=== PATIENT | male | born 1955 | race Caucasian/White ===

== ENCOUNTER 2019-08-15 07:17 | Outpatient (CLI) | payer OTHER, SELFPAY ==
[2019-08-15 07:40] LABS: Hematocrit 49.7 % (42.0-52.0); Hemoglobin 16.4 g/dL (14.0-18.0); Mean Corpuscular Hemoglobin 28.3 pg (26-34); Mean Corpuscular Volume 85.8 fl (80-100); Mean Platelet Volume 9.7 fl (7.4-10.4); Platelet Count Result 262 k/mm3 (150-375); Red Blood Count 5.79 M/mm3 (4.6-6.20); Red Cell Distribution Width 13.4 % (11.5-14.5); White Blood Count 7.6 K/mm3 (4.5-10.0)
[2019-08-15 07:46] LABS: Alanine Aminotransferase 44 U/L (4-50); Albumin Level 4.7 g/dL (3.5-5.1); Alkaline Phosphatase 90 U/L (38-126); Aspartate Amino Transferase 39 U/L (17-59); Bilirubin,Total 0.5 mg/dL (0.2-1.3); Blood Urea Nitrogen 16 mg/dL (9-20); Calcium 9.2 mg/dL (8.4-10.2); Carbon Dioxide 28 mmol/L (22-30); Chloride 103 mmol/L (98-107); Cholesterol 221 mg/dL (0-200); Estimated Glomerular Filt Rate > 60; Glucose 103 mg/dL (75-110); HDL Direct 41 mg/dL; Potassium 4.4 mmol/L (3.4-5.0); Sodium 141 mmol/L (137-145); Triglycerides 113 mg/dL (<150)
[2019-08-15 08:01] LABS: LDL Cholesterol Direct 150 mg/dL
[2019-08-15 08:21] LABS: Prostate Specific Antigen 1.1 ng/mL (< OR = 4.0)
[2019-08-15 09:02] LABS: Folic Acid 5.5 ng/mL (2.76->20)
== END 2019-08-15 07:18 | disposition home or self-care (01) ==
PROVIDERS: PCP Physician Assistant; Visit Provider Physician Assistant
DX: Z00.00 Encounter for general adult medical examination without abnormal findings (principal); Z12.5 Encounter for screening for malignant neoplasm of prostate; I10 Essential (primary) hypertension
CPT/HCPCS: 36415; 80053; 80061; 82607; 82746; 84153; 84443; 85027; G0103

== ENCOUNTER 2019-10-24 02:33 | Outpatient (CLI) | payer OTHER, SELFPAY ==
[2019-10-24 18:57] LABS: SARS-CoV-2 RNA PCR Negative
== END 2019-10-24 02:34 | disposition home or self-care (01) ==
LOC: ANHCOVIDDT 02:34
PROVIDERS: PCP Physician Assistant; Visit Provider Internal Medicine Gastroenterology
DX: Z01.812 Encounter for preprocedural laboratory examination (principal); Z11.59 Encounter for screening for other viral diseases
CPT/HCPCS: 87635; C9803; U0003

== ENCOUNTER 2019-10-27 00:25 | Day surgery (SDC) | payer OTHER, SELFPAY ==
[2019-10-20 13:18] VITALS: BMI 32.3
[2019-10-27 11:31] VITALS: BP 146/78; PULSE 63; RESP 16; TEMP 36.8; O2SAT 99
--- NOTE | 2019-10-27 11:33 | PM.IMHP ---
H&P: HPI History of Present Illness Date/Time: 10/27/19 11:33 Chief complaint: Neoplasm Screening Narrative: Reason for visit colonoscopy. This very pleasant gentleman seen in consultation at the request of the primary physician. Impression: Screening colonoscopy. The patient has history of hyperplastic colon polyps. Recommendation: Colonoscopy. History: This very pleasant gentleman's here for screening colonoscopy. He has a history of hyperplastic colon polyps. His GI review systems is negative. Physical examination: General: very pleasant patient in no acute distress. HEENT: Head was normocephalic sclerae is clear mouth without masses neck was supple. Heart: Rate rhythm regular without S3 or S4. Lungs: CTA. Abdomen: Soft with no guarding or rigidity. Bowel sounds were active. Neurologic: Cranial nerves 2 through 12 intact. No focal defects. No clonus. Musculoskeletal system: Revealed no joint tenderness or swelling no muscle atrophy. Extremities: Reveal no significant edema. Skin: Warm and dry with normal turgor. Mental status: intact. Patient is alert and oriented. Review of Systems Review of Systems: All systems reviewed & are unremarkable except as noted in HPI and below PMFSH Past Medical History Medical History (Updated 10/27/19 @ 11:33 by Wyatt Nice DO) Colon polyp, hyperplastic HLD (hyperlipidemia) Rheumatic fever (~1965) Surgical History Surgical History (Updated 10/27/19 @ 11:33 by Wyatt Nice DO) History of colonoscopy Hx of hernia repair Social History Social History Smoking status: Never smoker Second hand tobacco smoke exposure: No Alcohol intake: current Drinks per week: 5 Substance use: never Meds Home Medications and Allergies Home Medications Medication Instructions Recorded Confirmed Type No Home Medications 10/20/19 10/27/19 History Allergies Allergy/AdvReac Type Severity Reaction Status Date / Time No Known Allergies Allergy Verified 10/27/19 11:29
[2019-10-27] MEDS: LACTATED RINGERS 1,000 ML 150 ML IV CONT (11:46)
--- NOTE | 2019-10-27 12:14 | WPDANESEPPF ---
Anes - Initial Pre Proc Eval Procedure: Operation Date: 10/27/19 12:00 Proposed Procedures p Screening Colonoscopy - Wyatt Nice DO Date/Time: 10/27/19 12:14 Surgeon: Wyatt Nice DO Pre Op Diagnosis: Neoplasm Screening Patient Data Age: 64 Gender: M Height: 5 ft 10 in Weight: 102.3 kg Last Vital Signs Temp 98.3 F 10/27/19 11:31 Pulse 63 10/27/19 11:31 Resp 16 10/27/19 11:31 BP 146/78 H 10/27/19 11:31 Pulse Ox 99 10/27/19 11:31 Allergies Allergy/AdvReac Type Severity Reaction Status Date / Time No Known Allergies Allergy Verified 10/27/19 11:29 Home Medications Medication Instructions Recorded Confirmed Type No Home Medications 10/20/19 10/27/19 History Patient hx anesthesia problems: none Family hx anesthesia problems: none PMFSH Past Medical History Medical History (Updated 10/27/19 @ 11:33 by Wyatt Nice DO) Colon polyp, hyperplastic HLD (hyperlipidemia) Rheumatic fever (~1965) Surgical History Surgical History (Updated 10/27/19 @ 11:33 by Wyatt Nice DO) History of colonoscopy Hx of hernia repair Social History Social History Smoking status: Never smoker Second hand tobacco smoke exposure: No Alcohol intake: current Drinks per week: 5 Substance use: never Anes - Eval Final PreProcedure Day of Procedure 10/27/19 12:14 Patient weight: overweight Heart: regular rate and rhythm Lungs: clear to auscultation Airway: Mallampati scale class II Neurological: alert and oriented Last oral intake: >/= 8 hours ASA classification: II Emergent: no Anesthetic plan: proceed Anesthesia type and monitoring: general GIVS Informed Consent: The patient's anesthetic plan and its attendant risks and benefits were discussed with the patient/family/POA. Questions were solicited and answers provided to the satisfaction of the patient/family/POA.
[2019-10-27 13:59] VITALS: BP 146/78; PULSE 75; RESP 14; O2SAT 100
[2019-10-27 14:09] VITALS: BP 123/89; PULSE 59; RESP 16; O2SAT 100
[2019-10-27 14:19] VITALS: BP 123/89; PULSE 59; RESP 18; O2SAT 100
== END 2019-10-27 14:44 | disposition home or self-care (01) ==
PROVIDERS: PCP Physician Assistant; Visit Provider Internal Medicine Gastroenterology
PROC: 0DJD8ZZ Inspection of Lower Intestinal Tract, Via Natural or Artificial Opening Endoscopic (ICD-10-PCS; CPT 45378; principal; 2019-10-27 12:00)
DX: Z12.11 Encounter for screening for malignant neoplasm of colon (principal); K63.5 Polyp of colon
CPT/HCPCS: 45380; 88305; J2704; J7120

== ENCOUNTER 2020-10-05 20:02 | Emergency (ER) | payer OTHER, SELFPAY ==
[2020-10-05 20:04] VITALS: BP 152/72; PULSE 78; RESP 18; TEMP 36.2; O2SAT 99
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
[2020-10-05] MEDS: TETANUS,DIPHTHERIA,AC PERTUSSIS ADULT (0.5 ML) BOOSTRIX IM (22:17)
[2020-10-05 22:35] VITALS: BP 126/72; PULSE 84; RESP 18; TEMP 36.8; O2SAT 99
== END 2020-10-05 22:35 | disposition home or self-care (01) ==
PROVIDERS: Emergency Provider Family Medicine
DX: S40.812A Abrasion of left upper arm, initial encounter (principal); S40.811A Abrasion of right upper arm, initial encounter; S80.211A Abrasion, right knee, initial encounter; Z23 Encounter for immunization; Z87.19 Personal history of other diseases of the digestive system; E78.5 Hyperlipidemia, unspecified; V18.4XXA Pedal cycle driver injured in noncollision transport accident in traffic accident, initial encounter; Y93.55 Activity, bike riding
CPT/HCPCS: 90471; 90715; 99283

== ENCOUNTER 2021-05-25 06:58 | Outpatient (CLI) | payer OTHER, SELFPAY ==
[2021-05-25 07:20] LABS: Hematocrit 45.8 % (42.0-52.0); Hemoglobin 15.3 g/dL (14.0-18.0); Mean Corpuscular HGB Conc 33.4 g/dl (32-36); Mean Corpuscular Hemoglobin 27.9 pg (26-34); Mean Corpuscular Volume 83.6 fl (80-100); Mean Platelet Volume 9.4 fl (7.4-10.4); Platelet Count Result 261 k/mm3 (150-375); Red Blood Count 5.48 M/mm3 (4.6-6.20); Red Cell Distribution Width 13.2 % (11.5-14.5); White Blood Count 7.6 K/mm3 (4.5-10.0)
[2021-05-25 07:39] LABS: Alanine Aminotransferase 33 U/L (4-50); Albumin Level 4.2 g/dL (3.5-5.1); Alkaline Phosphatase 83 U/L (38-126); Anion Gap 6 mmol/L (8-16); Aspartate Amino Transferase 41 U/L (17-59); Bilirubin,Total 0.5 mg/dL (0.2-1.3); Blood Urea Nitrogen 16 mg/dL (9-20); Calcium 8.6 mg/dL (8.4-10.2); Carbon Dioxide 27 mmol/L (22-30); Chloride 106 mmol/L (98-107); Cholesterol 215 mg/dL (0-200); Estimated Glomerular Filt Rate > 60; Glucose 94 mg/dL (65-110); HDL Direct 37 mg/dL; Sodium 139 mmol/L (137-145); Triglycerides 122 mg/dL (<150)
[2021-05-25 07:49] LABS: LDL Cholesterol Direct 132 mg/dL
[2021-05-25 11:55] LABS: Folic Acid 5.4 ng/mL (2.76->20)
== END 2021-05-25 06:59 | disposition home or self-care (01) ==
LOC: ANHLAB 07:00
PROVIDERS: PCP Physician Assistant; Visit Provider Physician Assistant
DX: Z00.00 Encounter for general adult medical examination without abnormal findings (principal); Z12.5 Encounter for screening for malignant neoplasm of prostate
CPT/HCPCS: 36415; 80053; 80061; 82607; 82746; 84153; 84443; 85027; G0103

== ENCOUNTER 2024-11-02 09:53 | Emergency (ER) | payer MEDICARE, SELFPAY ==
--- OUTSIDE RECORDS SUMMARY | 2024-11-02 09:58 | XMS_ITS | Encounter Summary ---
Author Organization [facility] Address [address] [place] [address] Care Team Providers Care Electric Accounting Machine Operator Name Role Phone Carlos Oleary MD Primary Care Provider [phone] Encounter Details Date Type Department Care Team (Late st Contact Info) Description 03/20/[address] 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
--- OUTSIDE RECORDS SUMMARY | 2024-11-02 09:58 | XMS_ITS | Encounter Summary ---
Author Organization [facility] Address [address] [place] [address] Care Team Providers Care Wafer Substrate Tester Name Role Phone Carlos Oleary MD Primary Care Provider [phone] Encounter Details Date Type Department Care Team (Late st Contact Info) Description 05/04/1998 Outpatient Historical [facility] Internal Medicine - [place] [address] [place] [address] [place] [address] [place] [facility] [place] [address] Social History Tobacco Use Types Packs/Day Years Used Date Smoking Tobacco: Never Assessed Sex and Gender Information Value Date Recorded Sex Assigned at Not on file 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
--- OUTSIDE RECORDS SUMMARY | 2024-11-02 09:58 | XMS_ITS | Clinical Summary ---
Author Organization [facility] Address [address] [facility] Attn: Epic Prelude ADT [place] [address] Care Team Providers Care Bilingual Middle School Teacher Name Role Phone Carlos Oleary MD Primary Care Provider [phone] Social History Tobacco Use Types Packs/Day Years Used Date Smoking Tobacco: Never Assessed Sex and Gender Information Value Date Recorded Sex Assigned at Not on file Legal Sex Male 5:00 AM CONSOLIDATOR Gender Identity Not on file Sexual Orientation Not on file Plan of Treatment Health Maintenance Due Date Last Done Comments DTAP/TDAP/TD VACCINES (1 - Tdap) 01/28/1975 COLORECTAL SCREENING 01/28/2001 Colorectal Cancer Screening 01/28/2001 FIT-DNA Q 3 years 01/28/2001 FIT/FOBT Q 1 year 01/28/2001 Flex Sig/CT Colonography Q 5 years 01/28/2001 PNEUMOCOCCAL VACCINE 50+ YEARS (1 of 1 - PCV) 01/29/20 06 ZOSTER VACCINE (1 of 2) 01/28/2006 INFLUENZA VACCINE (#1) 2024 RSV VACCINE (60+ or ) (1 - 1-dose 75+ series) 01/28/2031 Care Teams Bilingual Middle School Teacher Relationship Specialty [place] [address] [place] [address] PCP - General 07/24/07
--- OUTSIDE RECORDS SUMMARY | 2024-11-02 09:58 | XMS_ITS | Encounter Summary ---
Author Organization [employer] Address [address] [place] [address] Care Team Providers Care Underground Mine Superintendent Name Role Phone Carlos Oleary MD Primary Care Provider [phone] Encounter Details Date Type Department Care Team (Late st Contact Info) Description 03/28/2001 Emergency [facility] Dyllan Nowak, [address] [facility] [address] [place] [id number] Er, Authorized P NO ADDRESS ON FILE CHEST PAIN NOS (Primary Dx) Social History Tobacco Use Types Packs/Day Years Used Date Smoking Tobacco: Never Assessed Sex and Gender Information Value Date Recorded Sex Assigned at Not on file 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
--- OUTSIDE RECORDS SUMMARY | 2024-11-02 09:58 | XMS_ITS | Encounter Summary ---
Author Organization [facility] Address [address] [place] [address] Care Team Providers Care Manager Family Name Role Phone Carlos Oleary MD Primary Care Provider [phone] Encounter Details Date Type Department Care Team (Late st Contact Info) Description 04/01/2001 Outpatient Historical [facility] Internal Medicine - [address] [place] [address] [place] [address] [place] [facility] [place] [address] Social History Tobacco Use Types Packs/Day Years Used Date Smoking Tobacco: Never Assessed Sex and Gender Information Value Date Recorded Sex Assigned at Not on file Legal Sex Male 5:00 AM MENTAL HEALTH CONSULTANT Gender Identity Not on file Sexual Orientation Not on file documented as of this encounter Plan of Treatment Not on file documented as of this encounter Visit Diagnoses Not on filedocumented in this encounter Care Teams Manager Family Relationship Specialty [place] [address] [facility] [place] [address] PCP - General 07/24/07 documented as of this encounter
--- OUTSIDE RECORDS SUMMARY | 2024-11-02 09:58 | XMS_ITS | Clinical Summary ---
Author Organization [facility] Address [address] [place] [address] Care Team Providers Care Circular Saw Operator Name Role Phone Simeon Anders MD Primary Care Provider Jose castro Social History Tobacco Use Types Packs/Day Years Used Date Smoking Tobacco: Never Assessed Sex and Gender Information Value Date Recorded Sex Assigned at Not on file Legal Sex Male 8:42 PM CDT Gender Identity Not on file Sexual Orientation Not on file Last Filed Vital Signs Vital Sign Reading Time Taken Comments Blood Pressure 144/68 08/12/2012 11:32 AM CDT Pulse 78 08/12/2012 11:32 AM CDT Temperature - - Respiratory Rate - - Oxygen Saturation - - Inhaled Oxygen Concentration - - Weight 98.9 kg (218 lb) 08/12/2012 11:32 AM CDT Height 185.4 cm (6' 1) 03/25/2012 4:55 PM HAND LAMINATOR Body Mass Index 28.76 03/25/2012 4:55 PM HAND LAMINATOR Plan of Treatment Health Maintenance Due Date Last Done Comments Colorectal Cancer Screening Colonoscopy (10 Years) 1956 Hepatitis C 01/28/1974 DTaP, Tdap and Td Vaccines ( 1 - Tdap) 01/28/1975 Pneumococcal Vaccine: 50+ Ye ars (1 of 1 - PCV) 01/28/2006 Zoster Vaccines (1 of 2) 01/28/2006 COVID-19 Vaccine ( - 2023-2 5 season) 2023 RSV Immunization or 60+ Years (1 - 1-dose 75+ series) 01/28/2031 Meningococcal B Vaccine Aged Out No l onger eligible based on patient's age to complete this topic Meningococcal Vaccine Aged Out No joanne dexter eligible based on patient's age to complete this topic RSV Immunizations Under 20 Months Aged Out No longer eligible based on patient's age to complete this topic Care Teams Circular Saw Operator Relationship Specialty Start Date End Date Simeon Anders MD PCP - General 06/04/12
--- OUTSIDE RECORDS SUMMARY | 2024-11-02 09:58 | XMS_ITS | Encounter Summary ---
Author Organization [facility] Address [address] [place] [address] Care Team Providers Care Wharfinger Chief Name Role Phone Carlos Oleary MD Primary Care Provider [phone] Encounter Details Date Type Department Care Team (Late st Contact Info) Description 10/18/2000 Outpatient Historical [facility] Internal Medicine - [address] [place] [address] [place] [address] [facility] [place] [address] Social History Tobacco Use Types Packs/Day Years Used Date Smoking Tobacco: Never Assessed Sex and Gender Information Value Date Recorded Sex Assigned at Not on file Legal Sex Male 5:00 AM SOLUTION SPEC Gender Identity Not on file Sexual Orientation Not on file documented as of this encounter Plan of Treatment Not on file documented as of this encounter Visit Diagnoses Not on filedocumented in this encounter Care Teams Wharfinger Chief Relationship Specialty [place] [address] [facility] [place] [address] PCP - General 07/24/07 documented as of this encounter
--- OUTSIDE RECORDS SUMMARY | 2024-11-02 09:58 | XMS_ITS | Encounter Summary ---
Author Organization [facility] Address [address] [place] [address] Care Team Providers Care Inventory Technician Name Role Phone Carlos Oleary MD Primary Care Provider Encounter Details Date Type Department Care Team (Late st Contact Info) Description 10/14/1999 Outpatient Historical [facility] Internal Medicine - [place] [address] [place] [phone] Donta Norman MD [address] [facility] [address] [place] [phone] Social History Tobacco Use Types Packs/Day Years Used Date Smoking Tobacco: Never Assessed Sex and Gender Information Value Date Recorded Sex Assigned at Not on file 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
--- OUTSIDE RECORDS SUMMARY | 2024-11-02 09:58 | XMS_ITS | Encounter Summary ---
Author Organization [facility] Address [address] [place] [address] Care Team Providers Care Food Service Lead Name Role Phone Carlos Oleary MD Primary Care Provider [phone] Encounter Details Date Type Department Care Team (Late st Contact Info) Description 03/30/1999 Outpatient Historical [facility] Internal Medicine - [address] [address] [place] [address] [place] [facility] [place] [address] Social History Tobacco Use Types Packs/Day Years Used Date Smoking Tobacco: Never Assessed Sex and Gender Information Value Date Recorded Sex Assigned at Not on file Legal Sex Male 5:00 AM SSIS ARCHITECT Gender Identity Not on file Sexual Orientation Not on file documented as of this encounter Plan of Treatment Not on file documented as of this encounter Visit Diagnoses Not on filedocumented in this encounter Care Teams Food Service Lead Relationship Specialty [place] [address] [facility] [place] [address] PCP - General 07/24/07 documented as of this encounter
--- OUTSIDE RECORDS SUMMARY | 2024-11-02 09:58 | XMS_ITS | Encounter Summary ---
Author Organization [facility] Address [address] [place] [address] Care Team Providers Care Application Development Consultant Name Role Phone Carlos Oleary MD Primary Care Provider [phone] Encounter Details Date Type Department Care Team (Late st Contact Info) Description 05/14/1998 Outpatient Historical [facility] Internal Medicine - [place] [address] [place] [address] [place] [address] [place] [facility] [place] [address] Social History Tobacco Use Types Packs/Day Years Used Date Smoking Tobacco: Never Assessed Sex and Gender Information Value Date Recorded Sex Assigned at Not on file Legal Sex Male 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
--- OUTSIDE RECORDS SUMMARY | 2024-11-02 09:58 | XMS_ITS | Encounter Summary ---
Author Organization [facility] Address 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
--- OUTSIDE RECORDS SUMMARY | 2024-11-02 09:58 | XMS_ITS | Encounter Summary ---
Author Organization [facility] Address [address] [place] [address] Care Team Providers Care Pharmacy Technician Name Role Phone Simeon Anders MD Primary Care Provider Jose riceindu Encounter Details Date Type Department Care Team (Latest Contact Info) Description 01/22/2018 Abstract [facility] , Arie Palm MD Social History Tobacco Use Types Packs/Day Years [...] on filedocumented in this encounter Care Teams Pharmacy Technician Relationship Specialty Start Date End Date Simeon Anders MD PCP - General 06/04/12 documented as of this encounter
--- OUTSIDE RECORDS SUMMARY | 2024-11-02 09:58 | XMS_ITS | Encounter Summary ---
Author Organization [facility] Address [address] [place] [address] Care Team Providers Care Senior Software Analyst Name Role Phone Carlos Oleary MD Primary Care Provider [phone] Encounter Details Date Type Department Care Team (Late st Contact Info) Description 06/08/1998 Outpatient Historical [facility] Internal Medicine - [place] [address] [place] [phone] Donta Norman MD [address] [facility] [address] [place] [phone] Social History Tobacco Use Types Packs/Day Years Used Date Smoking Tobacco: Never Assessed Sex and Gender Information Value Date Recorded Sex Assigned at Not on file Legal Sex Male 5:00 AM SPECIAL EDUCATION TEACHERS Gender Identity Not on file Sexual Orientation Not on file documented as of this encounter Plan of Treatment Not on file documented as of this encounter Visit Diagnoses Not on filedocumented in this encounter Care Teams Senior Software Analyst Relationship Specialty [place] [address] [place] [address] PCP - General 07/24/07 documented as of this encounter
--- OUTSIDE RECORDS SUMMARY | 2024-11-02 09:58 | XMS_ITS | Clinical Summary ---
Author Organization [facility] Address [address] [facility], [address] [address] Phone Care Team Providers Care Panel Laminator Name Role Phone Timothy Pate DO Primary Care Provider Social History Tobacco Use Types Packs/Day Years Used Date Smoking Tobacco: Never Assessed Sex and Gender Information Value Date Recorded Sex Assigned at Not on file Legal Sex Male 11:58 PM CDT Gender Identity Not on file Sexual Orientation Not on file Plan of Treatment Health Maintenance Due Date Last Done Comments Hepatitis C Virus (HCV) Screening 1955 TdaP Immunization 1955 Cologuard 01/28/2001 Immunochemical Fecal Occult Blood 01/28/2001 Pneumococcal Immunization (5 0+ years) (1 of 1 - PCV) 01/28/2006 Zoster Immunization (1 of 2) 01/28/2006 SARS-COV-2 Immunization ( - season) 2023 Influenza Immunization (#1) 2024 Colonoscopy 10/26/2026 10/27/2019 Colorectal Cancer Screening 10/26/2026 Respiratory Syncytial Virus (RSV) Immunization (Adult) (1 - 1-dose 75+ series) 01/28/2031 Hepatitis B Immunization Aged Out No longer eligible based on patient's age to complete this topic Human Papillomavirus (HPV) Immunization Aged Out No longer eligible b ased on patient's age to complete this topic Meningococcal Immunization (ACWY) Aged Out No longer eligible based on patient's age to complete this topic Rotavirus Immunization Aged Out No lo nger eligible based on patient's age to complete this topic Procedures Procedure Name Priority Date/Time Associated Diagnosis Comments COLONOSCOPY Routine 10/27/2019 from Last 3 Months or Most Recently Relevant to Health Maintenance Results * COLONOSCOPY (10/27/2019) Parker Santamaria PAC PROCEDURE/MINOR SURGIC AL ORDERABLES Final Result from Last 3 Months or Most Recently Relevant to Health Maintenance Insurance [facility] Care Teams Panel Laminator Relationship Specialty Start Date End Date Timothy Pate DO [address] [place] [address] PCP - General Internal Medicine 08/26/19
[2024-11-02 10:12] VITALS: BP 129/79; PULSE 59; RESP 17; TEMP 37.2; O2SAT 97
--- OUTSIDE RECORDS SUMMARY | 2024-11-02 10:37 | XMS_ITS | Clinical Summary ---
Author Organization [facility] Address [address] [facility], [address] [address] Phone Care Team Providers Care Airplane First Officer Name Role Phone Timothy Pate DO Primary [...] Most Recently Relevant to Health Maintenance Insurance [facility] Care Teams Airplane First Officer Relationship Specialty Start Date End Date Timothy Pate DO [address] [place] [address] PCP - General Internal Medicine 08/26/19
--- OUTSIDE RECORDS SUMMARY | 2024-11-02 10:37 | XMS_ITS | Encounter Summary ---
Author Organization [facility] Address [address] [place] [address] Care Team Providers Care Limerock Tower Loader Name Role Phone Carlos Oleary MD Primary Care Provider [phone] Encounter Details Date Type Department Care Team (Late st Contact Info) Description 05/14/1998 Outpatient Historical [facility] Internal [place] [address] [place] [address] [place] [address] 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
--- OUTSIDE RECORDS SUMMARY | 2024-11-02 10:37 | XMS_ITS | Encounter Summary ---
Author Organization [facility] Address 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
--- OUTSIDE RECORDS SUMMARY | 2024-11-02 10:37 | XMS_ITS | Clinical Summary ---
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
--- OUTSIDE RECORDS SUMMARY | 2024-11-02 10:37 | XMS_ITS | Encounter Summary ---
Author Organization [facility] Address 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
--- OUTSIDE RECORDS SUMMARY | 2024-11-02 10:37 | XMS_ITS | Encounter Summary ---
Author Organization [facility] Address [address] [place] [address] Care Team Providers Care Central Office Operator Name Role Phone Carlos Oleary MD Primary Care Provider [phone] Encounter Details Date Type Department Care Team (Late st Contact Info) Description 08/19/2001 Outpatient Historical [facility] Internal Medicine - [address] [place] [address] [place] [address] [place] [facility] [place] [address] Social History Tobacco Use Types Packs/Day Years Used Date Smoking Tobacco: Never Assessed Sex and Gender Information Value Date Recorded Sex Assigned at Not on file Legal Sex Male 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
--- OUTSIDE RECORDS SUMMARY | 2024-11-02 10:37 | XMS_ITS | Encounter Summary ---
Author Organization [facility] Address [address] [place] [address] Care Team Providers Care Vat Packer Name Role Phone Carlos Oleary MD Primary Care Provider [phone] Encounter Details Date Type Department Care Team (Late st Contact Info) Description 06/08/1998 Outpatient Historical [facility] Internal Medicine - [place] [address] [place] [phone] Donta Norman MD [address] [facility] [address] [place] [phone] Social History Tobacco Use Types Packs/Day Years Used Date Smoking Tobacco: Never Assessed Sex and Gender Information Value Date Recorded Sex Assigned at Not on file Legal Sex Male 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
--- OUTSIDE RECORDS SUMMARY | 2024-11-02 10:37 | XMS_ITS | Encounter Summary ---
Author Organization [facility] Address 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
--- OUTSIDE RECORDS SUMMARY | 2024-11-02 10:37 | XMS_ITS | Encounter Summary ---
Author Organization [facility] Address [address] [place] [address] Care Team Providers Care Facility Assistant Name Role Phone Carlos Oleary MD Primary Care Provider [phone] Encounter Details Date Type Department Care Team (Late st Contact Info) Description 03/28/2001 Emergency [facility] D[place]an [place], [address] [facility] [address] [place] [phone] Er, Authorized P NO ADDRESS ON FILE CHEST PAIN NOS (Primary Dx) Social History Tobacco Use Types Packs/Day Years Used Date Smoking Tobacco: Never Assessed Sex and Gender Information Value Date Recorded Sex Assigned at Not on file Legal Sex Male 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
--- OUTSIDE RECORDS SUMMARY | 2024-11-02 10:37 | XMS_ITS | Encounter Summary ---
Author Organization [facility] Address [address] [place] [address] Care Team Providers Care Maintenance Porter Name Role Phone Carlos Oleary MD Primary Care Provider [phone] Encounter Details Date Type Department Care Team (Late st Contact Info) Description 05/04/1998 Outpatient Historical [facility] Internal Medicine - [place] [address] [place] [address] [place] [address] [facility] 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
--- OUTSIDE RECORDS SUMMARY | 2024-11-02 10:38 | XMS_ITS | Encounter Summary ---
Author Organization [facility] Address [address] [place] [address] Care Team Providers Care C Consultant Name Role Phone Simeon Anders MD Primary Care Provider Jose riceindu Encounter Details Date Type Department Care Team (Latest Contact Info) Description 01/22/2018 [facility] , Arie Palm MD [...] on filedocumented in this encounter Care Teams C Consultant Relationship Specialty Start Date End Date Simeon Adners MD PCP - General 06/04/12 documented as of this encounter
--- OUTSIDE RECORDS SUMMARY | 2024-11-02 10:38 | XMS_ITS | Encounter Summary ---
Author Organization [facility] Address [address] [place] [address] Care Team Providers Care Environmental Sampler Name Role Phone Carlos Oleary MD Primary Care Provider [phone] Encounter Details Date Type Department Care Team (Late st Contact Info) Description 10/14/1999 Outpatient Historical [facility] Internal Medicine - [place] [address] [place] [phone] Donta Norman MD [address] [facility] [address] [place] [phone] Social History Tobacco Use Types Packs/Day Years Used Date Smoking Tobacco: Never Assessed Sex and Gender Information Value Date Recorded Sex Assigned at Not on file 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
--- OUTSIDE RECORDS SUMMARY | 2024-11-02 10:38 | XMS_ITS | Clinical Summary ---
Author Organization [facility] Address [address] [place] [address] Care Team Providers Care Lead Mason Tender Name Role Phone Simeon Anders MD Primary [...] 185.4 cm (6' 1) 03/25/2012 4:55 PM KEYSMITH Body Mass Index 28.76 03/25/2012 4:55 PM KEYSMITH Plan of Treatment Health Maintenance Due Date [...] age to complete this topic Care Teams Lead Mason Tender Relationship Specialty Start Date End Date Simeon Anders MD PCP - General 06/04/12
--- OUTSIDE RECORDS SUMMARY | 2024-11-02 10:38 | XMS_ITS | Encounter Summary ---
Author Organization [facility] Address 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
--- NOTE | 2024-11-02 11:08 | ED_ITS ---
HPI - General Adult General Chief complaint: Weakness Stated complaint: weakness, dizzy Time Seen by Provider: 11/02/24 10:05 History of Present Illness HPI narrative: Patient is a 69-year-old male who presents ER with dizziness. Began around 9:00 a.m.. He is getting out of his car and can feel lightheaded and dizzy. When he closes his eyes he feels like he is spinning. Cannot identify any aggravating or alleviating factors. No trauma. No weakness of an arm or leg. Feels slightly tingly. No chest pain or chest pressure. Related Data Allergies Allergy/AdvReac Type Severity Reaction Status Date / Time No Known Allergies Allergy Verified 05/20/21 09:07 Review of Systems 2 Review of Systems: All systems reviewed & are unremarkable except as noted in HPI and below Constitutional: Constitutional: Reports no additional constitutional complaints Cardiovascular: Cardiovascular: Reports no additional cardiovascular complaints Respiratory: Respiratory: Reports no additional respiratory complaints Neurologic: Reports system reviewed and no additional complaints, except as documented [facility] Past Medical History Medical History Colon polyp, hyperplastic HLD (hyperlipidemia) Rheumatic fever (~1965) Surgical History Surgical History History of colonoscopy Hx of hernia repair Family History Family History Sibling Cerebrovascular accident Family history of diabetes mellitus in first degree relative Family history of throat cancer, Onset Age: 64 Patient's brother is , Onset Age: 65 Family history of coronary artery disease, Onset Age: 65 Family history of malignant neoplasm of esophagus, Onset Age: 65 Family history of type 2 diabetes mellitus Father Family history of malignant neoplasm Patient's father is Mother Family history of diabetes mellitus in first degree relative, Onset Age: 84 Acute myocardial infarction, Onset Age: 84 Patient's mother is , Onset Age: 88 Family history of coronary artery disease, Onset Age: 88 Grandparent Family history of coronary artery disease Other Family history of allergic disorder Social History Social History Smoking status: Never smoker Second hand tobacco smoke exposure: No Alcohol intake: current Drinks per week: 5 Substance use: never Exam 2 Narrative: GENERAL: Well-appearing, well-nourished, and in no acute distress. HEAD: Normocephalic, atraumatic. EYES: PERRL and EOMI. Right gaze nystagmus. ENT: Mucous membranes moist. Ear drums normal. CHEST: Clear to auscultation. No respiratory distress. HEART: Regular rate and rhythm. Normal peripheral pulses. ABDOMEN: Soft, nontender, nondistended. EXTREMITIES: Normal range of motion. No edema. SKIN: Warm, dry, no rash. NEURO: Left gaze nystagmus. No upper extremity drift. Normal finger-nose testing. Normal ekzm-ob-vozl testing. Clear speech without expressive aphasia. No facial droop. Alert and oriented x3. PSYCH: Normal mood and affect. Course Course Emergency Course: Labs unremarkable. Symptoms resolved with fluids and meclizine. Appropriate for discharge home Vital Signs Vital signs: Vital Signs Temperature 98.9 F 11/02/24 10:12 Pulse Rate 59 L 11/02/24 10:12 Respiratory Rate 11/02/24 10:12 Blood Pressure 129/79 11/02/24 10:12 Pulse Oximetry 97 11/02/24 10:12 Oxygen Delivery Room Air 11/02/24 10:12 Temperature 98.9 F 11/02/24 10:12 Pulse Rate 59 L 11/02/24 10:12 Respiratory Rate 17 11/02/24 10:12 Blood Pressure 129/79 11/02/24 10:12 Pulse Oximetry 97 11/02/24 10:12 Oxygen Delivery Room Air 11/02/24 10:12 Medical Decision Making Vital Signs Vital Signs: Vital Signs Temperature 98.9 F 11/02/24 10:12 Pulse Rate 59 L 11/02/24 10:12 Respiratory Rate 11/02/24 10:12 Blood Pressure 129/79 11/02/24 10:12 Pulse Oximetry 97 11/02/24 10:12 Oxygen Delivery Room Air 11/02/24 10:12 Temperature 98.9 F 11/02/24 10:12 Pulse Rate 59 L 11/02/24 10:12 Respiratory Rate 17 11/02/24 10:12 Blood Pressure 129/79 11/02/24 10:12 Pulse Oximetry 97 11/02/24 10:12 Oxygen Delivery Room Air 11/02/24 10:12 Lab Data 11/02/24 11:11 11/02/24 11:11 Labs: Lab Results 11/02/24 Range/Units 11:11 WBC 8.8 (4.5-10.0) K/mm3 RBC 5.50 (4.6-6.20) M/mm3 Hgb 15.4 (14.0-18.0) g/dL Hct 47.2 (42.0-52.0) % MCV 85.8 (80-100) fl MCH 28.0 (26-34) pg MCHC 32.6 (32-36) g/dl RDW 13.3 (11.5-14.5) % Plt Count 270 (150-375) k/mm3 MPV 9.6 (7.4-10.4) fl Immature Gran % (Auto) 0.5 (0-0.5) % Neut % (Auto) 77.9 H (45.5-73.1) % Lymph % (Auto) 13.4 L (18.3-44.2) % [facility] % (Auto) 5.4 (2.6-8.5) % Eos % (Auto) 2.2 (0-4.4) % Baso % (Auto) 0.6 (0.2-1.2) % Lymph # (Auto) 1.18 (0.9-3.2) K/mm3 [facility] # (Auto) 0.5 (0.1-0.6) K/mm3 Eos # (Auto) 0.2 (0-0.3) K/mm3 Baso # (Auto) 0.1 (0.0-0.1) K/mm3 Abs Immat Gran (auto) 0.04 H (0.00-0.031) K/mm3 Absolute Neuts (auto) 6.9 H (1.3-6.7) K/mm3 Absolute Nucleated RBC 0.000 (0.0-0.012) K/mm3 Nucleated RBC % 0.0 (0.0-0.2) % Sodium 138 (137-145) mmol/L Potassium 4.4 (3.4-5.0) mmol/L Chloride 103 (98-107) mmol/L Carbon Dioxide 26 (22-30) mmol/L Anion Gap 9 (4-12) mmol/L BUN 13 (9-20) mg/dL Creatinine 0.86 (0.7-1.3) mg/dL Estim Creat Clear Calc 86 ml/min Estimated GFR > 60 (59 - ) Glucose 125 H (65-110) mg/dL Calcium 9.1 (8.4-10.2) mg/dL Total Bilirubin 0.7 (0.2-1.3) mg/dL AST 38 (17-59) U/L ALT 40 (6-50) U/L Alkaline Phosphatase 85 (38-126) U/L Total Protein 8.2 (6.3-8.2) g/dL Albumin 4.6 (3.5-5.1) g/dL Discharge Plan Discharge Clinical Impression: Vertigo Patient Disposition: Home Condition: Stable Instructions: Vertigo (ED) Patient Language: Maltese Prescriptions: New meclizine 25 mg tablet 25 mg PO TID PRN (Reason: dizziness) Qty: 20 0RF No Action fluticasone propionate [Flonase Allergy Relief] 50 mcg/actuation spray,suspension 2 spray intranasal DAILY Qty: 16 3RF Rx Instructions: administer into each nostril Follow-up/Referrals: Rio,Timothy Marshall DO [Primary Care Provider] - 1 Week
[2024-11-02] MEDS: SODIUM CHLORIDE 0.9% IV 1,000 ML 999 ML IV CONT (11:09)
[2024-11-02] MEDS: MECLIZINE HCL 25 MG TABLET PO (11:09)
[2024-11-02 11:19] LABS: Hematocrit 47.2 % (42.0-52.0); Hemoglobin 15.4 g/dL (14.0-18.0); Immature Granulocyte Percent A 0.5 % (0-0.5); Lymphocytes Absolute Auto 1.18 K/mm3 (0.9-3.2); Mean Corpuscular HGB Conc 32.6 g/dl (32-36); Mean Corpuscular Hemoglobin 28.0 pg (26-34); Mean Corpuscular Volume 85.8 fl (80-100); Nucleated Red Blood Cells Absolute Auto 0.000 K/mm3 (0.0-0.012); Nucleated Red Blood Cells Perc 0.0 % (0.0-0.2); Platelet Count Result 270 k/mm3 (150-375); Red Blood Count 5.50 M/mm3 (4.6-6.20); White Blood Count 8.8 K/mm3 (4.5-10.0)
[2024-11-02 11:44] LABS: Alanine Aminotransferase 40 U/L (6-50); Albumin Level 4.6 g/dL (3.5-5.1); Alkaline Phosphatase 85 U/L (38-126); Anion Gap 9 mmol/L (4-12); Aspartate Amino Transferase 38 U/L (17-59); Bilirubin,Total 0.7 mg/dL (0.2-1.3); Blood Urea Nitrogen 13 mg/dL (9-20); Calcium 9.1 mg/dL (8.4-10.2); Carbon Dioxide 26 mmol/L (22-30); Chloride 103 mmol/L (98-107); Estimated CRCL calculation 86 ml/min; Estimated Glomerular Filt Rate > 60; Glucose 125 mg/dL (65-110); Potassium 4.4 mmol/L (3.4-5.0); Sodium 138 mmol/L (137-145); Total Protein 8.2 g/dL (6.3-8.2)
[2024-11-02 12:08] VITALS: BP 157/95; PULSE 57; RESP 18; O2SAT 95
== END 2024-11-02 12:34 | disposition home or self-care (01) ==
PROVIDERS: Emergency Provider Emergency Medicine; PCP Internal Medicine
DX: R42 Dizziness and giddiness (principal); E78.5 Hyperlipidemia, unspecified
CPT/HCPCS: 36415; 80053; 85025; 96360; 99283; A9270; J7030

== ENCOUNTER 2024-11-10 07:05 | Outpatient (CLI) | payer MEDICARE, SELFPAY ==
[2024-11-10 08:20] LABS: Hemoglobin A1C 5.5 % (<5.7)
[2024-11-10 08:39] LABS: Cholesterol 218 mg/dL (0-200); HDL Direct 39 mg/dL; Triglycerides 142 mg/dL (<150)
[2024-11-10 09:15] LABS: Prostate Specific Antigen 1.5 ng/mL (< OR = 4.0)
== END 2024-11-10 07:06 | disposition home or self-care (01) ==
PROVIDERS: PCP Internal Medicine; Visit Provider Internal Medicine
DX: R73.9 Hyperglycemia, unspecified (principal); E78.5 Hyperlipidemia, unspecified; Z13.220 Encounter for screening for lipoid disorders; Z12.5 Encounter for screening for malignant neoplasm of prostate
CPT/HCPCS: 36415; 80061; 83036; 84153; G0103